=== PATIENT | female | born 1990 | race Caucasian/White ===

== ENCOUNTER 2022-10-16 10:15 | Outpatient (AMB) | payer OTHER, SELFPAY ==
--- NOTE | 2022-10-16 10:19 | A.OFFPC_ITS ---
Vital Signs 10/16/22 10:22 Height 5 ft 3 in Weight 215 lb BMI 38.1 BP 122/86 Blood Pressure Location Lt brachial Position Sitting Pulse 83 Pulse Source Pulse Oximeter Pulse Oximetry (%) 96 Oxygen Delivery Method Room Air Intake Visit Reasons: New Patient/ Fractured bone left foot Intake Note: Patient is here to establish care and to discuss fractured bone in left foot. Melt Superintendant Required: No Accompanied by: Self / Same As Patient Allergies ibuprofen [From Motrin] Allergy (Intermediate, Verified 08/07/23 16:20) HIVES hydrocodone Adverse Reaction (Intermediate, Verified 08/07/23 16:20) itching / rash From VICODIN Allergy (Unknown, Uncoded 08/07/23 16:20) ITCHING/RASH Medication List - Last Reconciled 10/16/22 by Lorenzo Aguiar MD No Known Home Meds Tobacco use date assessed: 10/16/22 HPI New Patient/ Fractured bone left foot HPI Details Patient comes in today to establish care (is a new patient to the practice) and also to discuss further her recent left foot symptoms States that she has been experiencing increased pain in her left foot for a couple of weeks now Is concerned that she may have hurt her foot recently States that she does a lot of walking and does not recall any particular injury or trauma to her foot except for when she planted her foot down harder than usual one time while going down some stairs a couple of weeks ago Recalls that she felt a sharp pain in her foot then and the pain has lingered since States that she is currently able to walk and move around with no significant difficulty States that she feels okay otherwise She denies any headaches or dizziness Denies any chest pains, no shortness of breath No nausea/vomiting, no abdominal pain No change in bowel habits noted [facility] Medical History (Updated 08/08/23 @ 05:47 by Lorenzo Aguiar MD) Obesity (BMI 30-39.9) Surgical History (Updated 08/07/23 @ 16:24 by Lorenzo Aguiar MD) No pertinent past surgical history Family History Other FH: mental illness Social History (Updated 08/07/23 @ 16:25 by Lorenzo Aguiar MD) Housing: House Patient Tobacco Use Status: Former Tobacco user Cigarette Packs Per Day: 0.5 Cigarettes Per Day: 10 Years Smoked: 8 e-Cigarette/Vaping Use: Currently Using Second Hand Smoke Exposure: No service: No Current occupational status: employed Current occupational exposures/hazards: No Cognitive needs: No Hearing needs: No Vision needs: No Questionnaire PHQ-9 Over the last 2 weeks, how often have you been bothered by any of the following problems? 1. Little interest or pleasure in doing things: more than half the days 2. Feeling down, depressed, or hopeless: more than half the days 3. Trouble falling or staying asleep, or sleeping too much: nearly every day 4. Feeling tired or having little energy: nearly every day 5. Poor appetite or overeating: nearly every day 6. Feeling bad about yourself - or that you are a failure or have let yourself or your family down: more than half the days 7. Trouble concentrating on things, such as reading the newspaper or watching television: nearly every day 8. Moving or speaking so slowly that other people could have noticed. Or the opposite - being so fidgety or restless that you have been moving around a lot more than usual: not at all 9. Thoughts that you would be better off or of hurting yourself in some way: not at all Total score: 18 Depression Screening Interpretation: Positive Depression Screening Follow-up: Existing condition and Community Mental Health Worker [place] [address] - PHQ-9 Billing: Yes Source: Developed by Drs. Madi Kenney, Hyacinth Hi, Frank Herrmann and colleagues, with an educational jayy from [employer]. Thrive Questionnaire Date Thrive assessed: 10/16/22 I am a: Patient What is your living situation today?: I have a steady place to live Within the past 12 months, did the food you bought not last and you didn't have the money to get more?: Never true Within the past 12 months, did you worry whether your food would run out before you got money to buy more?: Never true Do you have trouble paying for medicines?: No Do you have trouble getting transportation to medical appointments?: No Do you have trouble paying your heating and electricity bill?: No Do you have trouble taking care of your child, family member or friend?: No Do you have trouble with day-to-day activities such as bathing, preparing meals, shopping, managing finances, etc.?: No Are you currently unemployed and looking for a job?: No Are you interested in more education?: No Currently or been in a relationship where the following occur: no concerns reported AUDIT C Alcohol Use Questionnaire (AUDIT-C) 1. How often do you have a drink containing alcohol?: Never Total Score: 0 Score Reviewed/Action Taken: Yes CARLITO-7 AMB Questionnaire CARLITO-7 Date CARLITO - 7 assessed: 10/16/22 Feeling nervous, anxious, or on edge: 3 = Nearly every day Not being able to stop or control worryin = Nearly every day Worrying too much about different things: 3 = Nearly every day Trouble relaxin = Nearly every day Being so restless that it is hard to sit still: 3 = Nearly every day Becoming easily annoyed or irritable: 3 = Nearly every day Feeling afraid as if something awful might happen: 3 = Nearly every day Total CARLITO-7 score (0-4 normal; 5-9 mild; 10-14 moderate; 15-21 severe): 21 Source: Developed by Drs. Madi Kenney, Hyacinth Hi, Frank Herrmann and colleagues, with an educational jayy from [employer]. Review of Systems Const Denies chills, Denies fatigue, Denies fever(s) and Denies headache(s) ENT Denies dysphagia, Denies dizziness, Denies otalgia, Denies headache(s), Denies neck pain, Denies odynophagia and Denies sore throat Card Denies chest pain, Denies palpitations and Denies dyspnea Resp Denies cough and Denies dyspnea GI Denies abdominal pain, Denies constipation, Denies dysphagia, Denies heartburn, Denies diarrhea, Denies nausea, Denies odynophagia and Denies vomiting Denies difficulty voiding, Denies nocturia and Denies dysuria Musc Details: (+) left foot pain Denies neck pain Skin/Breast Denies rash Neuro Denies dizziness and Denies headache(s) Endo Denies fatigue and Denies palpitations Physical exam (Primary Care) Vital Signs: Last Vital Signs Pulse 83 10/16/22 10:22 BP 122/86 10/16/22 10:22 Pulse Ox 96 10/16/22 10:22 Oxygen Delivery Method Room Air 10/16/22 10:22 BMI result Body Mass Index 38.1 Tobacco/Smoking Status: Tobacco use Status Tobacco use date assessed 10/16/22 10/16/22 10:30 Patient Tobacco Use Status Current someday Tobacco 10/16/22 10:30 e-Cigarette/Vaping Use Never Used 10/16/22 10:30 PHQ-9: PHQ-9 Score PHQ-9: Total score 18 08/08/23 05:34 Depression Screening Interpretation: Positive Depression Screening Follow-up: Existing condition and Community Mental Health Worker F/U Thrive Assessment: Date of Thrive Assessment Date Thrive assessed 10/16/22 10/16/22 10:30 Currently or been in a relationship where the following occur: no concerns reported Const General: no acute distress and alert Neck Neck: Yes no lymphadenopathy and Yes supple Resp Auscultation: clear to auscultation bilaterally, no rales and no wheezes Cardio Rate: regular rate Rhythm: regular rhythm Heart sounds: no murmurs GI Other: Palpation (GI): Soft to palpation and nontender Auscultation: normal bowel sounds Extrem General: Yes no clubbing, cyanosis or edema Left lower extremity: foot Details: tenderness (mostly over the ball of her left foot near the base of the 3rd and 4th toes) Assessment and Plan Assessment & Plan (1) Left foot pain: Code(s): M79.672 - Pain in left foot Plan: Will send patient for some labs and for x-rays of the left foot for further evaluation and management (2) Obesity (BMI 30-39.9): Code(s): E66.9 - Obesity, unspecified Plan: Discussed diet/exercise as tolerated/ lose weight Plan To return in 3 months for an annual physical examination Orders: Orders Complete Blood Count Auto Diff 10/16/22 L08.9 - Local infection of the skin and subcutaneous tissue, unspecified Hemoglobin A1c 10/16/22 L08.9 - Local infection of the skin and subcutaneous tissue, unspecified, R73.9 - Hyperglycemia, unspecified C Reactive Protein 10/16/22 L08.9 - Local infection of the skin and subcutaneous tissue, unspecified TSH reflex Free T4 10/16/22 L08.9 - Local infection of the skin and subcutaneous tissue, unspecified, E66.9 - Obesity, unspecified Comprehensive Met. Panel 10/16/22 L08.9 - Local infection of the skin and subcutaneous tissue, unspecified Erythrocyte Sedimentation Rate 10/16/22 L08.9 - Local infection of the skin and subcutaneous tissue, unspecified Coding Level of Care Code New Pt Level 3 ([id number]) Diagnoses Left foot pain M79.672 Obesity (BMI 30-39.9) E66.9
[2022-10-16 10:22] VITALS: BP 122/86; PULSE 83; O2SAT 96; BMI 38.1
== END 2022-10-16 11:15 | disposition home or self-care (01) ==
LOC: HO.HMGH 10:15
PROVIDERS: PCP Internal Medicine; Visit Provider Internal Medicine
DX: M79.672 Pain in left foot (principal); E66.9 Obesity, unspecified
CPT/HCPCS: 99499

== ENCOUNTER 2022-10-16 11:29 | Outpatient (REF) | payer OTHER, SELFPAY ==
--- NOTE | ~2022-10-16 | XR_ITS ---
EXAMINATION: XR FOOT, LEFT CLINICAL INFORMATION: Pain lateral foot. COMPARISON: None available. TECHNIQUE: AP, lateral, and oblique views of the left foot. FINDINGS: There is a healing transverse fracture proximal fourth metatarsal. No visible acute fracture or dislocation or bony abnormality seen. The soft tissues are normal. There is mild hallux valgus deformity first MTP joint. T the ankle mortise and subtalar joints are normal. He soft tissues are normal. XR/XR foot LT min 3V IMPRESSION: 1. Healing transverse fracture proximal fourth metatarsal. No visible acute fracture or dislocation seen. 2. Mild hallux valgus deformity first MTP joint.
[2022-10-16 11:47] LABS: MANUAL DIFF FLAG NO
[2022-10-16 12:20] LABS: Basophils Absolute Auto 0.1 X10*3/uL (0.0-0.2); Basophils Percent Auto 0.9 % (0-2); Eosinophils Absolute Auto 0.2 X10*3/uL (0.0-0.4); Eosinophils Percent Auto 2.6 % (0-4); Hematocrit 39.9 % (37.0-47.0); Hemoglobin 13.4 g/dl (12.0-16.0); Imm Gran Abs Auto 0.03 X10*3/uL (0.00-0.03); Imm Gran Pct Auto 0.4 % (0.0-0.4); Lymphocytes Absolute Auto 2.6 X10*3/uL (1.2-4.9); Lymphocytes Percent Auto 33.2 % (20-40); Mean Corpuscular HGB Conc 33.6 g/dl (31.0-35.0); Mean Corpuscular Hemoglobin 29.8 pg (27.0-33.0); Mean Corpuscular Volume 88.7 fL (80.0-98.0); Mean Platelet Volume 11.2 fL (9.4-12.3); Monocytes Absolute Auto 0.7 X10*3/uL (0.1-1.2); Monocytes Percent Auto 8.4 % (2-11); Neutrophils Absolute Auto 4.3 x10*3/uL (2.0-8.3); Neutrophils Percent Auto 54.5 % (45-73); Platelet Count 256 X10*3/uL (160-400); Red Cell Distribution Width 13.6 % (11.0-16.0); White Blood Count 7.8 X10*3/uL (4.8-10.8)
[2022-10-16 12:22] LABS: Estimated Average Glucose 88 mg/dL; Hemoglobin A1c % 4.7 %
[2022-10-16 13:03] LABS: Alanine Aminotransferase 36 U/L (0-31); Albumin Level 4.4 g/dL (3.5-5.0); Alkaline Phosphatase 58 U/L (39-117); Anion Gap 12 (12-20); Aspartate Amino Transferase 25 U/L (5-31); Bilirubin Total 0.5 mg/dL (0.0-1.0); Blood Urea Nitrogen 6 mg/dL (9-16); C Reactive Protein 0.13 mg/dL (< or = 0.50); Calcium 9.6 mg/dL (8.4-10.2); Carbon Dioxide 25 mmol/L (22-29); Chloride 107 mmol/L (96-108); Estimated Glomerular Filt Rate > 60; Glucose Random 100 mg/dL (60-115); Potassium 4.4 mmol/L (3.3-5.1); Sodium 140 mmol/L (135-145)
[2022-10-16 13:13] LABS: TSH reflex Free T4 1.51 uIU/mL (0.32-4.0)
[2022-10-16 13:23] LABS: Erythrocyte Sedimentation Rate 6 MM/HR (0-20)
== END 2022-10-16 11:30 | disposition home or self-care (01) ==
LOC: HO.LAB 11:29
PROVIDERS: PCP Internal Medicine; Visit Provider Internal Medicine
DX: L08.9 Local infection of the skin and subcutaneous tissue, unspecified (principal); R73.9 Hyperglycemia, unspecified; E66.9 Obesity, unspecified
CPT/HCPCS: 36415; 73630; 80053; 83036; 84443; 85025; 85652; 86140

== ENCOUNTER 2023-08-07 15:38 | Outpatient (AMB) | payer OTHER, SELFPAY ==
[2023-08-07 15:43] VITALS: BP 120/76; PULSE 94; O2SAT 98; BMI 39.4
--- NOTE | 2023-08-07 15:43 | MHC.PC.OV ---
Vital Signs 08/07/23 15:43 Height 5 ft 3 in Weight 222 lb 6 oz BMI 39.4 BP 120/76 Blood Pressure Location Lt brachial Position Sitting Pulse 94 Pulse Source Pulse Oximeter Pulse Oximetry (%) 98 Oxygen Delivery Method Room Air Intake Visit Reasons: Annual appointment Hand Profiler Required: No Accompanied by: Self / Same As Patient Allergies ibuprofen [From Motrin] Allergy (Intermediate, Verified 08/07/23 16:20) HIVES hydrocodone Adverse Reaction (Intermediate, Verified 08/07/23 16:20) itching / rash From VICODIN Allergy (Unknown, Uncoded 08/07/23 16:20) ITCHING/RASH Medication List - Last Reconciled 08/07/23 by Lorenzo Aguiar MD No Known Home Meds Tobacco use date assessed: 08/07/23 Dental Screening Dental Screen Date: 08/07/23 Did you have a dental visit in the last 12 months?: Yes Did you have a dental problem in the last 6 months where you did not have access to dental care?: No Was dental information given to patient?: Patient has dentist HPI Annual appointment HPI Details Patient comes in today for her annual physical examination States that she feels okay She denies any headaches or dizziness Denies any chest pains, no shortness of breath No nausea/ vomiting, no abdominal pain No change in bowel habits noted Denies any acute urinary symptoms Adds that she still has on and off pain in her right foot but the pain has subsided a lot since last year and only bothers her now when she is on her feet for a long time Had x-rays done last year that did not show anything that needed any acute intervention [facility] Medical History (Updated 08/08/23 @ 05:26 by Lorenzo Aguiar MD) Obesity (BMI 30-39.9) Surgical History (Updated 08/07/23 @ 16:24 by Lorenoz Aguiar MD) No pertinent past surgical history Family History Other FH: mental illness Social History (Updated 08/07/23 @ 16:25 by Lorenzo Aguiar MD) Housing: House Patient Tobacco Use Status: Former Tobacco user Cigarette Packs Per Day: 0.5 Cigarettes Per Day: 10 Years Smoked: 8 e-Cigarette/Vaping Use: Currently Using Second Hand Smoke Exposure: No service: No Current occupational status: employed Current occupational exposures/hazards: No Cognitive needs: No Hearing needs: No Vision needs: No Questionnaire PHQ-9 Over the last 2 weeks, how often have you been bothered by any of the following problems? 1. Little interest or pleasure in doing things: more than half the days 2. Feeling down, depressed, or hopeless: more than half the days 3. Trouble falling or staying asleep, or sleeping too much: nearly every day 4. Feeling tired or having little energy: nearly every day 5. Poor appetite or overeating: nearly every day 6. Feeling bad about yourself - or that you are a failure or have let yourself or your family down: more than half the days 7. Trouble concentrating on things, such as reading the newspaper or watching television: nearly every day 8. Moving or speaking so slowly that other people could have noticed. Or the opposite - being so fidgety or restless that you have been moving around a lot more than usual: not at all 9. Thoughts that you would be better off or of hurting yourself in some way: not at all Total score: 18 Depression Screening Interpretation: Positive Depression Screening Follow-up: Existing condition and Community Mental Health Worker F/U Depression Screening Done: Yes 87228 - PHQ-9 Billing: Yes Source: Developed by Drs. Madi Kenney, Hyacinth Hi, Frank Herrmann and colleagues, with an educational jayy from [employer]. Thrive Questionnaire Date Thrive assessed: 08/07/23 I am a: Patient What is your living situation today?: I have a steady place to live Within the past 12 months, did the food you bought not last and you didn't have the money to get more?: Never true Within the past 12 months, did you worry whether your food would run out before you got money to buy more?: Never true Do you have trouble paying for medicines?: No Do you have trouble getting transportation to medical appointments?: No Do you have trouble paying your heating and electricity bill?: No Do you have trouble taking care of your child, family member or friend?: No Do you have trouble with day-to-day activities such as bathing, preparing meals, shopping, managing finances, etc.?: No Are you currently unemployed and looking for a job?: No Are you interested in more education?: No Please select the resources that you would like help with: None Currently or been in a relationship where the following occur: no concerns reported THRIVE Score: 0 AUDIT C Alcohol Use Questionnaire (AUDIT-C) 1. How often do you have a drink containing alcohol?: Never 3. How often do you have six or more drinks on one occasion?: Never Total Score: 0 Score Reviewed/Action Taken: Yes CARLITO-7 AMB Questionnaire CARLITO-7 Date CARLITO - 7 assessed: 08/07/23 Feeling nervous, anxious, or on edge: 3 = Nearly every day Not being able to stop or control worryin = Nearly every day Worrying too much about different things: 3 = Nearly every day Trouble relaxin = Nearly every day Being so restless that it is hard to sit still: 3 = Nearly every day Becoming easily annoyed or irritable: 3 = Nearly every day Feeling afraid as if something awful might happen: 3 = Nearly every day Total CARLITO-7 score (0-4 normal; 5-9 mild; 10-14 moderate; 15-21 severe): 21 Source: Developed by Drs. Madi Kenney, Hyacinth iH, Frank Herrmann and colleagues, with an educational jayy from [employer]. Review of Systems Const Denies chills, Denies fatigue, Denies fever(s), Denies headache(s) and Denies malaise Eyes Denies blurry vision, Denies change in vision, Denies irritation and Denies itchy eyes ENT Denies dysphagia, Denies dizziness, Denies otalgia, Denies headache(s), Denies nasal congestion, Denies neck pain, Denies odynophagia, Denies sinus pain and Denies sore throat Card Denies chest pain, Denies rapid heart rate, Denies irregular heart rhythm, Denies palpitations and Denies dyspnea Resp Denies chest congestion, Denies cough, Denies dyspnea and Denies wheezing GI Denies abdominal pain, Denies bloating, Denies constipation, Denies dysphagia, Denies heartburn, Denies diarrhea, Denies nausea, Denies odynophagia and Denies vomiting Denies hematuria, Denies urinary frequency, Denies dysuria, Denies urinary incontinence and Denies urinary urgency Musc Details: occasional pain in the right foot Denies back pain, Denies arthralgias, Denies joint swelling, Denies muscle weakness and Denies neck pain Skin/Breast Denies breast pain, Denies breast mass, Denies change in pigmentation, Denies lesions, Denies rash and Denies unusual bruising Neuro Denies dizziness, Denies headache(s) and Denies paresthesias Psych Denies anxiety and Denies depression Endo Denies fatigue and Denies palpitations Kristian/Lymph Denies easy bruising Aller/Immun Denies itchy eyes and Denies wheezing Physical exam (Primary Care) Vital Signs: Last Vital Signs Pulse 94 08/07/23 15:43 BP 120/76 08/07/23 15:43 Pulse Ox 98 08/07/23 15:43 Oxygen Delivery Method Room Air 08/07/23 15:43 BMI result Body Mass Index 39.4 Tobacco/Smoking Status: Tobacco use Status Tobacco use date assessed 08/07/23 08/07/23 15:46 Patient Tobacco Use Status Former Tobacco user 08/07/23 16:25 e-Cigarette/Vaping Use Currently Using 08/07/23 16:25 PHQ-9: PHQ-9 Score PHQ-9: Total score 18 08/07/23 16:26 Depression Screening Interpretation: Positive Depression Screening Follow-up: Existing condition and Community Mental Health Worker F/U Thrive Assessment: Date of Thrive Assessment Date Thrive assessed 08/07/23 08/07/23 15:46 Currently or been in a relationship where the following occur: no concerns reported Const General: no acute distress, alert and awake Orientation/consciousness: patient oriented x3 HENMT Head: Yes normocephalic and Yes atraumatic Ears: external ears normal, TM's normal bilaterally and EAC's normal General nose exam: No nasal discharge present Face and sinus: Yes normal facial exam and Yes sinuses nontender Teeth and gingiva: dentition normal Throat: Yes posterior oropharynx normal and Yes tonsils normal (no TP congestion) Eyes Eyelids: Yes eyelids normal Conjunctivae: conjunctivae normal Pupils: Equal, round and reactive pupils present EOM: EOMs intact bilaterally Neck Neck: Yes no lymphadenopathy and Yes supple Thyroid: Thyroid normal Resp Auscultation: clear to auscultation bilaterally, no rales and no wheezes Cardio Rate: regular rate Rhythm: regular rhythm Heart sounds: no murmurs GI Palpation (GI): Soft to palpation, nontender and No hepatosplenomegaly present Auscultation: normal bowel sounds General: Yes no CVA tenderness Back/Spine/Pelvis Back: no CVA tenderness Thoracic/Lumbar Spine: thoracic and lumbar spine normal to inspection Skin Lesions: no lesions Rashes: no rashes Neuro General: patient oriented x3, moves all extremities, no focal motor deficits and CN's II-XI intact bilaterally Cranial nerves: Yes Equal, round and reactive pupils present Cognition (Neuro): normal cognition Gait exam (Neuro): Normal gait present Extrem General: Yes no clubbing, cyanosis or edema Assessment and Plan Assessment & Plan (1) Annual physical exam: Code(s): Z00.00 - Encounter for general adult medical examination without abnormal findings Plan: Check labs She has not had her annual gynecology exam and pap smear in a few years now and is requesting for a referral to gynecology here at [facility] [place] - used to see gynecology in [place] (2) Right foot pain: Code(s): M79.671 - Pain in right foot Plan: X-rays of the right foot done back in September 2022 revealed (+) healing transverse fracture proximal fourth metatarsal, with no visible acute fracture or dislocation seen. There is also a mild hallux valgus deformity over the first MTP joint Patient states that her foot symptoms have subsided significantly and only bother her occasionally nowadays Discussed that if her foot pain recurs or progress, can consider referring her to Podiatry for further evaluation and management (3) Obesity (BMI 30-39.9): Code(s): E66.9 - Obesity, unspecified Plan: Reinforced diet/exercise as tolerated/ lose weight (4) Cervical cancer screening: Code(s): Z12.4 - Encounter for screening for malignant neoplasm of cervix Plan: Will refer her to Gynecology for her annual Pap smear and gynecology exam Plan To return in 1 year for her next annual physical examination Orders: Orders Complete Blood Count Auto Diff 08/07/23 D64.9 - Anemia, unspecified, Z00.00 - Encounter for general adult medical examination without abnormal findings Lipid Panel 08/07/23 E78.00 - Pure hypercholesterolemia, unspecified, Z00.00 - Encounter for general adult medical examination without abnormal findings TSH reflex Free T4 08/07/23 E78.00 - Pure hypercholesterolemia, unspecified, Z00.00 - Encounter for general adult medical examination without abnormal findings Vitamin D 25-OH Total 08/07/23 E55.9 - Vitamin D deficiency, unspecified, Z00.00 - Encounter for general adult medical examination without abnormal findings Comprehensive [place]. 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
== END 2023-08-07 16:35 | disposition home or self-care (01) ==
PROVIDERS: PCP Internal Medicine; Visit Provider Internal Medicine
DX: Z00.00 Encounter for general adult medical examination without abnormal findings (principal); M79.672 Pain in left foot; E66.9 Obesity, unspecified; Z68.39 Body mass index [BMI] 39.0-39.9, adult
CPT/HCPCS: 99395

== ENCOUNTER 2024-12-18 09:15 | Outpatient (AMB) | payer OTHER, SELFPAY ==
[2024-12-18 09:24] VITALS: BP 110/68; PULSE 85; O2SAT 98; BMI 39.0
--- NOTE | 2024-12-18 09:24 | A.OFFPC_ITS ---
Vital Signs 12/18/24 09:24 Height 5 ft 3 in Weight 220 lb 2 oz BMI 39.0 BP 110/68 Blood Pressure Location Lt brachial Position Sitting Pulse 85 Pulse Source Pulse Oximeter Pulse Oximetry (%) 98 Oxygen Delivery Method Room Air Intake Visit Reasons: referral psychiatry/ surgery? 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 Accompanied by: Self / Same As Patient Allergies ibuprofen (From Motrin) Allergy (Intermediate, Verified 12/18/24 09:41) HIVES hydrocodone Adverse Reaction (Intermediate, Verified 12/18/24 09:41) itching / rash From VICODIN Allergy (Unknown, Uncoded 12/18/24 09:41) ITCHING/RASH Medication List - Last Reconciled 12/18/24 by Lorenzo Aguiar MD No Known Home Meds Tobacco use date assessed: 12/18/24 Dental Screening Dental Screen Date: 12/18/24 Did you have a dental visit in the last 12 months?: Yes Did you have a dental problem in the last 6 months where you did not have access to dental care?: No Was dental information given to patient?: Patient has dentist HPI referral psychiatry/ surgery? HPI Details Patient comes in today complaining of recurrent right foot pain lately, especially over toe areas She feels that her toes are curving in and downwards more than they normally should Relates (+) Hx of foot fracture a few years ago but that was mostly on the lateral aspect of the foot States that she is on her feet at work all day long, and also does a lot of walking, which do not help with her foot symptoms She denies any recent injury or trauma to her foot Adds that she is presently still smoking 1 pack / day - has been smoking off and on for about 7 years but now wants some help to quit smoking States that she has tried cold turkey unsuccessfully; has also tried patches in the past but admits that she was inconsistent with its use She denies any headaches or dizziness Denies any chest pains, no increased SOB No nausea/vomiting, no abdominal pain No change in bowel habits noted PFSH Medical History Smoker Obesity (BMI 30-39.9) Surgical History No pertinent past surgical history Family History (Reviewed 12/18/24 @ 09: by FERNANDO Soler) Other FH: mental illness Social History (Reviewed 12/18/24 @ 09: by FERNANDO Soler) Housing: House Patient Tobacco Use Status: Former Tobacco user Cigarette Packs Per Day: 0.5 Cigarettes Per Day: 10 Years Smoked: 8 e-Cigarette/Vaping Use: Currently Using Second Hand Smoke Exposure: No service: No Current occupational status: employed Current occupational exposures/hazards: No Cognitive needs: No Hearing needs: No Vision needs: No Questionnaire PHQ-9 Over the last 2 weeks, how often have you been bothered by any of the following problems? 1. Little interest or pleasure in doing things: more than half the days 2. Feeling down, depressed, or hopeless: several days 3. Trouble falling or staying asleep, or sleeping too much: several days 4. Feeling tired or having little energy: several days 5. Poor appetite or overeating: several days 6. Feeling bad about yourself - or that you are a failure or have let yourself or your family down: several days 7. Trouble concentrating on things, such as reading the newspaper or watching television: several days 8. Moving or speaking so slowly that other people could have noticed. Or the opposite - being so fidgety or restless that you have been moving around a lot more than usual: nearly every day 9. Thoughts that you would be better off or of hurting yourself in some way: not at all Total score: 11 Depression Screening Interpretation: Positive Depression Screening Follow-up: Existing condition and Community Mental Health Worker F/U Depression Screening Done: Yes 15364 - PHQ-9 Billing: Yes Source: Developed by Drs. Madi Kenney, Hyacinth Hi, Frank Herrmann and colleagues, with an educational jayy from [employer]. Thrive Questionnaire Date Thrive assessed: 12/18/24 I am a: Patient What is your living situation today?: I have a steady place to live Within the past 12 months, did the food you bought not last and you didn't have the money to get more?: Sometimes True Within the past 12 months, did you worry whether your food would run out before you got money to buy more?: Sometimes True Do you have trouble paying for medicines?: No Do you have trouble getting transportation to medical appointments?: No Do you have trouble paying your heating and electricity bill?: Yes Do you have trouble taking care of your child, family member or friend?: No Do you have trouble with day-to-day activities such as bathing, preparing meals, shopping, managing finances, etc.?: No Are you currently unemployed and looking for a job?: No Are you interested in more education?: No Please select the resources that you would like help with: None Currently or been in a relationship where the following occur: No concerns reported THRIVE Score: 3 AUDIT C Alcohol Use Questionnaire (AUDIT-C) 1. How often do you have a drink containing alcohol?: Never 3. How often do you have six or more drinks on one occasion?: Never Total Score: 0 Score Reviewed/Action Taken: Yes CARLITO-7 AMB Questionnaire CARLITO-7 Date CARLITO - 7 assessed: 12/18/24 Feeling nervous, anxious, or on edge: 3 = Nearly every day Not being able to stop or control worryin = Nearly every day Worrying too much about different things: 3 = Nearly every day Trouble relaxin = Nearly every day Being so restless that it is hard to sit still: 3 = Nearly every day Becoming easily annoyed or irritable: 3 = Nearly every day Feeling afraid as if something awful might happen: 3 = Nearly every day Total CARLITO-7 score (0-4 normal; 5-9 mild; 10-14 moderate; 15-21 severe): 21 Source: Developed by Drs. Madi Kenney, Hyacinth Hi, Frank Herrmann and colleagues, with an educational jayy from [employer]. Review of Systems Const Denies fatigue, Denies fever(s) and Denies headache(s) ENT Denies dysphagia, Denies dizziness, Denies otalgia, Denies headache(s), Denies neck pain, Denies odynophagia and Denies sore throat Card Denies chest pain, Denies rapid heart rate, Denies irregular heart rhythm, Denies palpitations and Denies dyspnea Resp Denies chest congestion, Denies cough and Denies dyspnea GI Denies abdominal pain, Denies constipation, Denies dysphagia, Denies heartburn, Denies diarrhea, Denies nausea, Denies odynophagia and Denies vomiting Denies urinary frequency, Denies dysuria and Denies urinary urgency Musc Details: (+) on and off pain over the toes of the right foot Denies back pain, Denies arthralgias and Denies neck pain Skin/Breast Denies rash Neuro Denies dizziness and Denies headache(s) Psych Denies anxiety and Denies depression Endo Denies fatigue and Denies palpitations Kristian/Lymph Denies easy bruising Physical exam (Primary Care) Vital Signs: Last Vital Signs Pulse 85 12/18/24 09:24 BP 110/68 12/18/24 09:24 Pulse Ox 98 12/18/24 09:24 Oxygen Delivery Method Room Air 12/18/24 09:24 BMI result Body Mass Index 39.0 Tobacco/Smoking Status: Tobacco use Status Tobacco use date assessed 12/18/24 12/18/24 09:30 Patient Tobacco Use Status Former Tobacco user 12/18/24 09:30 e-Cigarette/Vaping Use Currently Using 12/18/24 09:30 PHQ-9: PHQ-9 Score PHQ-9: Total score 11 12/18/24 09:30 Depression Screening Interpretation: Positive Depression Screening Follow-up: Existing condition and Community Mental Health Worker F/U Thrive Assessment: Date of Thrive Assessment Date Thrive assessed 12/18/24 12/18/24 09:30 Currently or been in a relationship where the following occur: No concerns reported Const General: no acute distress and alert HENMT Throat: Yes posterior oropharynx normal and Yes tonsils normal (no TP congestion) Neck Neck: Yes supple and No lymphadenopathy Thyroid: Thyroid normal Resp Auscultation: clear to auscultation bilaterally, no rales and no wheezes Cardio Rate: regular rate Rhythm: regular rhythm Heart sounds: no murmurs GI Palpation (GI): Soft to palpation and nontender Auscultation: normal bowel sounds General: Yes no CVA tenderness Back/Spine/Pelvis Back: no CVA tenderness Thoracic/Lumbar Spine: No lumbar spinal tenderness Skin Rashes: no rashes Extrem General: Yes no clubbing, cyanosis or edema Right lower extremity: foot ((+) tenderness over the toes and the ball area of the foot - see HPI) Coding Level of Care Code Est Pt Level 4 (04189) Diagnoses Right foot pain M79.671 Smoker F17.200 Obesity (BMI 30-39.9) E66.9 Cervical cancer screening Z12.4 Additional Codes PHQ-9 - 61495 - PHQ-9 Billing: Yes ([id number]) Assessment & Plan Assessment & Plan (1) Right foot pain: Code(s): M79.671 - Pain in right foot Category: Medical Plan: (+) Hx of fracture over the lateral aspect of the right foot although her current complaints are more over the toes and the ball of the foot Will send patient for x-rays of the right foot for further evaluation Will also refer her to podiatry for further evaluation and management of her right foot issues (2) Smoker: Code(s): F17.200 - Nicotine dependence, unspecified, uncomplicated Category: Social Hx Plan: Patient is counseled again on complete smoking cessation Will start her on Nicotine patches - to start on step 1 and work her way down as instructed to the maintenance dose (step 3) of 7 mg/day (3) Obesity (BMI 30-39.9): Code(s): E66.9 - Obesity, unspecified Category: Medical Plan: Reinforced diet/exercise as tolerated/lose weight (4) Cervical cancer screening: Code(s): Z12.4 - Encounter for screening for malignant neoplasm of cervix Category: Medical Plan: Will again refer her to the [facility] for her yearly gynecology exam and pap smear She was referred last year but states that she was never able to schedule an appointment with them Plan To return in 3 to 4 months for her annual physical examination Orders: Orders XR foot RT min 3V Today M79.671 - Pain in right foot Referrals [employer] Referral Z12.4 - Encounter for screening for malignant neoplasm of cervix Podiatry Referral M79.671 - Pain in right foot Medications: New nicotine 1 patch transdermal DAILY 7 ea 0RF 7 days F17.200 - Nicotine dependence, unspecified, uncomplicated nicotine 1 patch transdermal DAILY 7 ea 0RF 7 days F17.200 - Nicotine dependence, unspecified, uncomplicated nicotine 1 patch transdermal Q24H 28 ea 5RF 28 days F17.200 - Nicotine dependence, unspecified, uncomplicated
== END 2024-12-18 10:00 | disposition home or self-care (01) ==
LOC: HO.HMCH 09:16
PROVIDERS: PCP Internal Medicine; Visit Provider Internal Medicine
DX: M79.671 Pain in right foot (principal); F17.200 Nicotine dependence, unspecified, uncomplicated; E66.9 Obesity, unspecified; Z68.39 Body mass index [BMI] 39.0-39.9, adult

== ENCOUNTER 2024-12-18 09:15 | Outpatient (REF) | payer OTHER, SELFPAY ==
--- NOTE | ~2024-12-18 | XR_ITS ---
EXAMINATION: XR FOOT, RIGHT CLINICAL INFORMATION: M79.671 - Pain in right foot COMPARISON: None available. TECHNIQUE: AP, lateral, and oblique views of the right foot. FINDINGS: There is hallux valgus deformity. There is associated lateral subluxation of the sesamoids of the first metatarsal head. Other abnormality is apparent. XR/XR foot RT min 3V IMPRESSION: Hallux valgus deformity with moderate lateral subluxation of the sesamoids. Electronically signed by: Byron Kraus MD 12/18/2024 10:34 AM EDT
== END 2024-12-18 09:16 | disposition home or self-care (01) ==
LOC: HO.XRAY 09:15
PROVIDERS: PCP Internal Medicine; Visit Provider Internal Medicine
DX: M79.671 Pain in right foot (principal); E66.9 Obesity, unspecified; Z68.39 Body mass index [BMI] 39.0-39.9, adult; F17.200 Nicotine dependence, unspecified, uncomplicated; Z13.31 Encounter for screening for depression; Z13.39 Encounter for screening examination for other mental health and behavioral disorders
CPT/HCPCS: 73630; 96127; 99212

== ENCOUNTER → 2024-12-18 10:15 | Outpatient (BNV) | payer OTHER, SELFPAY | PROVIDERS: PCP Internal Medicine; Visit Provider Radiology Diagnostic Radiology | DX: M79.671 Pain in right foot (principal) | CPT/HCPCS: 73630 ==

== ENCOUNTER 2025-03-16 14:37 | Outpatient (REF) | payer OTHER, SELFPAY ==
--- NOTE | ~2025-03-16 | XR_ITS ---
EXAMINATION: XR FOOT 3 OR MORE VIEWS LEFT HISTORY: M79.672 - Pain in left foot COMPARISON: Comparison is made with the prior examination dated 10/16/2022. FINDINGS: Three views of the left foot are submitted. Osseous mineralization is normal. The previously seen fracture of the base of the 4th metatarsal has healed. No acute fracture or dislocation is seen. There is mild hallux valgus deformity of the great toe. An erosion is again seen in the metatarsal head. The soft tissues are unremarkable. XR/XR foot LT min 3V IMPRESSION: Mild hallux valgus deformity of the great toe. Healed fracture of the base of the 4th metatarsal. Electronically signed by: Madi Vincent MD 03/16/2025 03:36 PM EDT
== END 2025-03-16 14:38 | disposition home or self-care (01) ==
LOC: HO.HMGCX 14:37
PROVIDERS: PCP Internal Medicine; Visit Provider Family Medicine
DX: M84.375A Stress fracture, left foot, initial encounter for fracture (principal)
CPT/HCPCS: 73630

== ENCOUNTER 2025-03-16 14:37 | Outpatient (AMB) | payer OTHER, SELFPAY ==
--- OUTSIDE RECORDS SUMMARY | 2025-03-13 20:59 | XMS_ITS | Encounter Summary ---
Author Organization [facility] Address [address] [place] [address] Care Team Providers Care Chimney Mechanic Name Role Phone Lorenzo Aguiar MD Primary Care Provider + [phone] Reason for Referral * Consultation (Routine) - Pending Review Specialty Diagnoses / Procedures Referred By Brianna feldman Referred To Contact Podiatry Diagnoses Left foot pain Peña Colin PA [address] [place] [address] Phone: tel: fax: Referral ID Status Reason Start Date Expiration Date Visits Requested Visits Authorized [id number] Pending Review Specialty Services Required 03/13/2026 1 1 Reason for Visit * Reason Comments Lower Extremity Issue Left foot pain x 1 week- no trauma/injury Encounter Details Date Type Department Care Team (Late st Contact Info) Description 03/13/2025 8:59 PM EDT - 03/13/2025 9:06 PM EDT Emergency [facility] Emergency [address] [place] [address] Left foot pain (Primary Dx) Discharge Disposition: Home or Self Care Social History Tobacco Use Types Packs/Day Years Used Date Smoking Tobacco: Never Assessed Comments No Sex and Gender Information Value Date Recorded Sex Assigned at Not on file Legal Sex Female 4:19 AM EST Gender Identity Not on file Sexual Orientation Not on file documented as of this encounter Last Filed Vital Signs Vital Sign Reading Time Taken Comments Blood Pressure 145/85 03/13/2025 8:47 PM EDT Pulse 85 03/13/2025 8:47 PM EDT Temperature 37 C (98.6 F) 03/13/2025 8:47 PM EDT Respiratory Rate 19 03/13/2025 8:47 PM EDT Oxygen Saturation 99% 03/13/2025 8:47 PM EDT Inhaled Oxygen Concentration - - Weight 96.2 kg (212 lb) 03/13/2025 8:47 PM EDT Height 160 cm (5' 3 ) 03/13/2025 8:47 PM EDT Body Mass Index 37.55 03/13/2025 8:47 PM EDT documented in this encounter Functional Status * Calculated C-SSRS Risk Score (Lifetime/Recent) Answer Date of Assessment Author No Risk Indicated 03/13/2025 8:47 PM EDT Ana Rosa Elkins i, RN * [place] Suicide Severity Rating Scale (Screener/Recent Self-Report) Question Answer Date of Assessment Author 1. Wish to be (Past 1 Month) No 03/13/2025 8:47 PM EDT Shelbie Duran ra, NEDA 2. Non-Specific Active Suicidal Thoughts (Past 1 Month) No 03/13/2025 8:47 PM EDT Shelbie Duran ra, RN 6. Suicidal Behavior (Lifetime) No 03/13/2025 8:47 PM EDT Shelbie Duran ra, NEDA documented as of this encounter Discharge Instructions * Discharge Instructions* CHRISTINA Anne - 03/13/2025 9:00 PM EDT Wear postoperative shoe for the next several days to 2 weeks Ice therapy twice a time Tylenol/ibuprofen for pain as needed directed Please follow-up with professional housing consultant if pain persist greater than 2 weeks for reevaluation further workup * Attachments The following attachments cannot be sent through Care Everywhere. * Foot Pain (Sol[place] Islander) documented in this encounter Discharge Disposition Disposition Code Departure Means Destination Comment s Home or Self Care documented in this encounter Progress Notes * Ana Rosa Duran RN - 03/13/2025 8:43 PM EDT Left foot pain starting at the top and now wrapping around the base and traveling up her ankle. Says that a few hours prior to arrival experienced numbness on the outside of her ankle. Has positive palpable pulses both dorsalis and post tib. And cap refill <3 sec. No noted discoloration. Denies injury. Able to move all toes. Had Xrays done at urgent care which showed nothing. * CHRISTINA Anne - 03/13/2025 8:37 PM EDT HPI Chief Complaint Patient presents with Lower Extremity Issue Left foot pain x 1 week- no trauma/injury HPI left foot pain for the past week. Seen in urgent care with negative x-rays. Denies any trauma injury but states that she does wear different shoes from time to time. Pain primarily at the base ofthe 2nd and 3rd toes worse when walking on it and absent when resting. No history of gout or blood clots. Denies any swelling bruising bleeding numbness tingling weakness. No data recorded Patient History Medical History[1] Surgical History[2] Family History[3] Social History Tobacco Use Smoking status: Not on file Smokeless tobacco: Not on file Substance Use Topics Alcohol use: Not on file Drug use: Not on file Review of Systems Review of Systems Physical Exam ED Triage Vitals [03/13/252046] Temp Heart Rate Resp BP 37 ??C (98.6 ??F) 85 19 (!) 145/85 SpO2 Temp Source Heart Rate Source Patient Position 99 % Oral Radial Sitting BP Location FiO2 (%) Right arm -- Physical Exam GENERAL: Well developed, no acute distress HEENT: Normocephalic and atraumatic, EOMI NECK: Supple, trachea is midline RESP: No respiratory distress CARDIOVASCULAR: Regular rate GASTROINTESTINAL: Abdomen is soft, non distended MUSCULOSKELETAL: ROM normal, no obvious acute deformities, no bony tenderness or deformity, pain with dorsiflexion of the toes against resistance, distal CMS intact, walking steady gait SKIN: Warm and dry NEUROLOGIC: At baseline, no acute focal deficits PSYCHIATRIC: Calm and cooperative ED Course & MDM Clinical Impressions as of 03/14/25 0336 Left foot pain Medical Decision Making Exam history most consistent with tendon/ligament strain of the 2nd and 3rd toes, given negative x-rays outpatient no suspicion for fracture dislocation Lisfranc injury Vital signs reviewed Pulse oximetry reviewed and found to be > 94% on room air Physical exam as above Nursing notes reviewed X-rays declined Social determinants of health considered including housing follow-up social and financial support Patient deemed appropriate for discharge with symptomatic treatment, recommendations to follow-up with primary care doctor / specialist with return precautions provided Procedures Procedure: Splint Application Distal CMS intact prior to splint Prefabricated postoperative shoe applied and fitted appropriately by myself or under my supervisionfrom another staff member of the ED Distal CMS intact after splint CHRISTINA Anne 03/14/25 0357 [1] No past medical history on file. [2] No past surgical history on file. [3] No family history on file. CHRISTINA Anne 03/14/25 0432 Cosigned by Flavia Mueller MD at 03/14/2025 9:22 AM EDT Associated attestation - Flavia Mueller MD - 03/14/2025 9:22 AM EDT I was available for consult in real time on shift and if asked my input in care is as outlined by the documentation below by me. If not documented, then I did not participate in the care of this patient and have reviewed the chart as written. Flavia Mueller MD documented in this encounter Plan of Treatment Upcoming Encounters Date Type Department Care Team (Late st Contact Info) Description 03/24/2025 2:15 PM EDT Office Visit Orthopedic Surgery - [place] [address] [address] Adiel Cosby, DPSparkle [address] [address] Scheduled Referrals Name Type Priority Associated Diagnoses Order Schedule Ambulatory referral to Podiatry Outpatient Referral Routine 1 Occurrence s starting 03/13/2025 until 03/13/2026 documented as of this encounter Visit Diagnoses Diagnosis Left foot pain- Primary Pain in soft tissues of limb documented in this encounter Orders General Supply Count Last Ordered Date First Or dered Date GENERAL SUPPLY 1 03/13/2025 documented in this encounter Care Teams Chimney Mechanic Relationship Specialty Start Date End Date Lorenzo Aguiar MD [address] [place] [address] [address] [place], [place] PCP - General Internal Medicine 12/21/24 documented as of this encounter
[2025-03-16 14:40] VITALS: BP 128/82; PULSE 84; TEMP 36.9; O2SAT 99; BMI 39.0
--- NOTE | 2025-03-16 14:40 | AM.OFFWIN_ITS ---
Intake Vital Signs 03/16/25 14:40 Height 5 ft 3 in Weight 220 lb BMI 39.0 BP 128/82 Blood Pressure Location Lt brachial Position Sitting Pulse 84 Pulse Source Pulse Oximeter Temp 98.5 F Temp Source Oral Pulse Oximetry (%) 99 Oxygen Delivery Method Room Air Intake Visit Reasons: EP-lt foot pain & swollen Intake Note: Patient presents with c/o swelling & stinging/throbbing pain in left foot x2 weeks Patient Tobacco Use Status: Former Tobacco user Allergies ibuprofen (From Motrin) Allergy (Intermediate, Verified 03/16/25 14:44) HIVES acetaminophen (From Vicodin) Allergy (Verified 03/16/25 14:44) Itching hydrocodone Adverse Reaction (Intermediate, Verified 03/16/25 14:44) itching / rash Medication List - Last Reconciled 03/16/25 by Jacqui Beltran MD No Known Home Meds Do you need a note to return to daycare/school/sports/work: Yes HPI HPI Comments History of Present Illness Details The patient is a 34-year-old female presenting with foot pain and swelling. Left foot pain: - The patient reports experiencing persi stent left foot pain for the past two weeks. - Pain onset was sudden and without any noted injury or trauma. - Pain has progressively intensified and currently radiating up the foot. - The patient does not recall any specif ic events, such as prolonged walking or physical strain, that may have triggered the pain. - The patient works on her feet for appr oximately 10 hours daily, which is her usual activity level. - She ambulates using the heel despite t he pain. Review of Systems Constitutional: Negative for fevers, chills Musculoskeletal: Positive for arthralgias, lower extremity swelling, trouble ambulating Skin: Negative for rash or wounds Neurological: Negative for numbness Physical Exam General Appearance: Normal appearance, well developed. No acute distress Head: Normocephalic, atraumatic Pulmonary: No respiratory distress. Speaking in full sentences Musculoskeletal: Moving all extremities spontaneously and against gravity. Swelling observed on the dorsum of the left foot. Tenderness to palpation overlying the distal left 2nd, 3rd, and 4th metatarsals. Sensation intact distally. +2 dorsalis pedis pulses. Cap refill less than 2 seconds. Normal range of motion of the toes. Mental Status: Alert and Oriented x 3 Psychiatric: Normal mood. Normal affect. [facility] Medical History Smoker Obesity (BMI 30-39.9) Surgical History No pertinent past surgical history Family History Other FH: mental illness Social History Housing: House Patient Tobacco Use Status: Former Tobacco user Cigarette Packs Per Day: 0.5 Cigarettes Per Day: 10 Years Smoked: 8 e-Cigarette/Vaping Use: Currently Using Second Hand Smoke Exposure: No service: No Current occupational status: employed Current occupational exposures/hazards: No Cognitive needs: No Hearing needs: No Vision needs: No Physical Exam Vital Signs: Last Vital Signs Temp 98.5 F 03/16/25 14:40 Pulse 84 03/16/25 14:40 BP 128/82 03/16/25 14:40 Pulse Ox 99 03/16/25 14:40 Oxygen Delivery Method Room Air 03/16/25 14:40 BMI result Body Mass Index 39.0 Assessment & Plan Assessment & Plan (1) Stress fracture of metatarsal bone of left foot: Code(s): M84.375A - Stress fracture, left foot, initial encounter for fracture Qualifiers: Encounter type: initial encounter Qualified Code(s): M84.375A - Stress fracture, left foot, initial encounter for fracture Plan - After personally reviewing left foot x-rays; irregularity noted along the left distal 3rd metatarsal. Spoke with radiologist who reported findings may be consistent with a vascular groove vs stress response and to correlate clinically. Due to patient's symptoms, physical exam, and worsening pain without known trauma, concern for potential stress fracture of the distal 3rd metatarsal. Patient was placed in a Cam boot and referral to Podiatry placed. Discussed rest, ice, and elevation. OTC pain medication as needed. Orders: Orders XR foot LT min 3V Today M79.672 - Pain in left foot Referrals Podiatry Referral M84.376A - Stress fracture, unspecified foot, initial encounter for fracture Coding Level of Care Code Est Pt Level 3 (42307) Diagnoses Stress fracture of metatarsal bone of left foot, initial encounter M84.375A Encounter type: initial encounter
--- OUTSIDE RECORDS SUMMARY | 2025-03-16 19:42 | XMS_ITS ---
Author Name [facility] Organization Unknown History of Medication Use Medication Directions Dispensed Refills Start Date End Date Stat us active Encounters Encounter Type Encounter Reason Primary Diagnosis Location Date Ambulatory TBE Pain in right knee [facility]) 03/08/2025 Care Team Organization Name Specialty Phone Email Start Date End [facility] 03/11/2025 [facility] 03/08/2025
--- OUTSIDE RECORDS SUMMARY | 2025-03-16 19:42 | XMS_ITS | Clinical Summary ---
Author Organization [facility] Address [address] [place] [address] Phone Care Team Providers Care Usability Strategist Name Role Phone Lorenzo Aguiar MD Primary Care Provider [phone] Allergies No known active allergies Encounters Date Type Department Care Team Description 03/13/2025 8:59 PM EDT - 03/13/2025 9:06 PM EDT Emergency [facility] [address] [place] [address] Left foot pain (Primary Dx) Discharge Disposition: Home or Self Care from Last 3 Months Social History Tobacco Use Types Packs/Day Years Used Date Smoking Tobacco: Never Assessed Comments No Sex and Gender Information Value Date Recorded Sex Assigned at Not on file Legal Sex Female 4:19 AM EST Gender Identity Not on file Sexual Orientation Not on file Obstetrics History Last Filed Vital Signs Vital Sign Reading [...] Mass Index 37.55 03/13/2025 8:47 PM EDT Plan of Treatment Upcoming Encounters Date Type Department Care Team (Late st Contact Info) Description 03/24/2025 2:15 PM EDT Office Visit Orthopedic Surgery - [place] [address] [facility] [address] [place] [address] [place] [id number] Adiel Cosby, DPM [address] [phone] Health Maintenance Due Date Last Done Comments Cervical Cancer Screening: Pap Smear 2013 DTaP,Tdap,and Td Vaccines (7 - Td or Tdap) 04/28/2017 04/28/2007, 08/05/1997, 01/01/1994, Additional history exists Depression Screening 05/27/2024 COVID-19 Vaccine (2024- season) 2025 07/23/2022, 05/04/2022 Influenza Vaccine (#1) 2025 9, 04/19/2008, 04/28/2007 HIV Screening 03/13/2025 Hepatitis C Screening 03/13/2025 Social Influencers of Health Screening 03/13/2025 RSV Immunization Adult Patients (1 - 1-dose 75+ series) 07/26/2067 Hepatitis B Vaccines Completed 04/02/1994, 03/01/1993, 1992 IPV Vaccines Completed 08/05/1997, 12/1993, 1992, Additional history exists MMR Vaccines Completed 08/05/1997, 01/01/1994 Meningococcal ACWY Vaccine Aged Out 04/19/2008 N o longer eligible based on patient's age to complete this topic HPV Vaccines Completed 06/28/2008, 03/28, 04/28/2007 HIB Vaccines Aged Out No longer eligi ble based on patient's age to complete this topic Hepatitis A Vaccines Aged Out No long er eligible based on patient's age to complete this topic Meningococcal B Vaccine Aged Out No l onger eligible based on patient's age to complete this topic Pneumococcal Vaccine: Pediatrics (0 to 5 Years) and At-Risk Patients (6 to 49 Years) Aged Out No longer eligible based on patient's age to complete this topic RSV Immunization Patients Under 20 months Aged Out No longer eligible based on patient's age to complete this topic Varicella Vaccines Aged Out No longer eligible based on patient's age to complete this topic Insurance [place] [address] [place] [address] Care Teams Usability Strategist Relationship Specialty Start Date End Date Lorenzo Aguiar MD [address] [place] [address] [place] [address] PCP - General Internal Medicine 12/21/24
== END 2025-03-16 16:26 | disposition home or self-care (01) ==
PROVIDERS: PCP Internal Medicine; Visit Provider Family Medicine
DX: M84.375A Stress fracture, left foot, initial encounter for fracture (principal)

== ENCOUNTER → 2025-03-16 15:18 | Outpatient (BNV) | payer OTHER, SELFPAY | PROVIDERS: PCP Internal Medicine; Visit Provider Radiology Diagnostic Radiology | DX: M20.12 Hallux valgus (acquired), left foot (principal) | CPT/HCPCS: 73630 ==

== ENCOUNTER 2025-03-26 08:19 | Outpatient (AMB) | payer OTHER, SELFPAY ==
--- NOTE | 2025-03-26 08:23 | A.OFFPC_ITS ---
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: No Accompanied by: Self / Same As Patient Allergies ibuprofen (From Motrin) Allergy (Intermediate, Verified 03/26/25 08:36) HIVES acetaminophen (From Vicodin) Allergy (Verified 03/26/25 08:36) Itching hydrocodone Adverse Reaction (Intermediate, Verified 03/26/25 08:36) itching / rash Medication List - Last Reconciled 03/26/25 by GUY Da Silva No Known Home Meds Tobacco use date assessed: 03/26/25 Dental Screening Dental Screen Date: 03/26/25 Did you have a dental visit in the last 12 months?: Yes Did you have a dental problem in the last 6 months where you did not have access to dental care?: No Was dental information given to patient?: Patient has dentist HPI annual exam HPI Details Dentist: up to date Eye: 6 years ago Snellen: Right: Left: Corrected vision: Yes, glasses STI screening: Colonoscopy: Pap Smer: About a year and half, has to call and make appt PHQ-9: Flu: no COVID: x3 Tdap: given in office today Diet:regular Exercise: Reports that she does not workout but she is on her feet all the time The patient is a 34-year-old female presenting for an annual physical examination. She has a recent left foot fracture which was discovered incidentally during a consultation with Dr. Ibarra, a jack of all trades, for a planned surgery on a severe right foot bunion. The patient had been experiencing severe left foot pain for about two weeks prior to the diagnosis. The jack of all trades has placed her in a boot for the left foot, deferred the right foot surgery, and recommended she stay out of work for three months, which has caused her some distress. She is scheduled for a follow-up in one month to assess healing. The patient reports a history of being prone to foot fractures, having previously broken both feet just from walking. She attributes this to her job, where she stands for 55 hours a week for the past 12 years. The patient is a smoker and attempted to quit using nicotine patches but developed a severe rash, possibly due to an adhesive allergy. Her last eye exam was approximately six years ago, though she continues to wear glasses with the same prescription purchased online. Her last Pap smear was about a year and a half ago. She has had three COVID-19 vaccinations but does not typically get the flu vaccine. Her last tetanus shot was likely more than ten years ago. Past labs from 2022 showed no anemia and only a slightly elevated liver enzyme, which was not concerning. [facility] Medical History Smoker Obesity (BMI 30-39.9) Surgical History No pertinent past surgical history Family History Other FH: mental illness Social History Housing: House Patient Tobacco Use Status: Former Tobacco user Cigarette Packs Per Day: 0.5 Cigarettes Per Day: 10 Years Smoked: 8 e-Cigarette/Vaping Use: Currently Using Second Hand Smoke Exposure: No service: No Current occupational status: employed Current occupational exposures/hazards: No Cognitive needs: No Hearing needs: No Vision needs: No Questionnaire Thrive Questionnaire Date Thrive assessed: 12/16/24 I am a: Patient What is your living situation today?: I have a steady place to live Within the past 12 months, did the food you bought not last and you didn't have the money to get more?: Sometimes True Within the past 12 months, did you worry whether your food would run out before you got money to buy more?: Sometimes True Do you have trouble paying for medicines?: No Do you have trouble getting transportation to medical appointments?: No Do you have trouble paying your heating and electricity bill?: Yes Do you have trouble taking care of your child, family member or friend?: No Do you have trouble with day-to-day activities such as bathing, preparing meals, shopping, managing finances, etc.?: No Are you currently unemployed and looking for a job?: No Are you interested in more education?: No Please select the resources that you would like help with: None THRIVE Score: 3 CARLITO-7 AMB Questionnaire CARLITO-7 Date CARLITO - 7 assessed: 12/18/24 Source: Developed by Drs. Madi Kenney, Hyacinth Hi, Frank Herrmann and colleagues, with an educational jayy from [employer]. Review of Systems Const Denies fatigue, Denies fever(s) and Denies headache(s) ENT Denies dysphagia, Denies dizziness, Denies otalgia, Denies headache(s), Denies neck pain, Denies odynophagia and Denies sore throat Card Denies chest pain, Denies rapid heart rate, Denies irregular heart rhythm, Denies palpitations and Denies dyspnea Resp Denies chest congestion, Denies cough and Denies dyspnea GI Denies abdominal pain, Denies constipation, Denies dysphagia, Denies heartburn, Denies diarrhea, Denies nausea, Denies odynophagia and Denies vomiting Denies urinary frequency, Denies dysuria and Denies urinary urgency Musc Details: (+) on and off pain over the toes of the right foot Denies back pain, Denies arthralgias, Denies neck pain and Reports other (left and right foot pain) Skin/Breast Denies rash Neuro Denies Abnormal speech present, Denies dizziness and Denies headache(s) Psych Denies anxiety and Denies depression Endo Denies fatigue and Denies palpitations Kristian/Lymph Denies easy bruising Physical exam (Primary Care) Vital Signs: Last Vital Signs Temp 97.1 F 03/26/25 08:24 Pulse 85 03/26/25 08:24 Resp 18 03/26/25 08:24 BP 132/68 03/26/25 08:24 Pulse Ox 98 03/26/25 08:24 Oxygen Delivery Method Room Air 03/26/25 08:24 BMI result Body Mass Index 38.3 Tobacco/Smoking Status: Tobacco use Status Tobacco use date assessed 03/26/25 03/26/25 08:31 Patient Tobacco Use Status Former Tobacco user 03/26/25 08:31 e-Cigarette/Vaping Use Currently Using 03/26/25 08:31 Thrive Assessment: Date of Thrive Assessment Date Thrive assessed 12/16/24 03/26/25 08:31 Const General: healthy appearing, no acute distress, alert and awake Nutritional Appearance: well nourished Orientation/consciousness: oriented to person, oriented to place and oriented to time HENMT Ears: TM's normal bilaterally General nose exam: Normal nasal mucous membranes and turbinates present Eyes Conjunctivae: conjunctivae normal Sclerae: sclerae normal Pupils: Equal, round and reactive pupils present Neck Neck: Yes no lymphadenopathy and Yes no JVD Thyroid: Thyroid normal Carotids: no bruits Resp Effort & Inspection: normal respiratory effort and not tachypneic Auscultation: no crackles, no rales, no rhonchi and no wheezes Cardio Rate: regular rate Rhythm: regular rhythm Heart sounds: no murmurs and normal S1 and S2 GI Palpation (GI): Soft to palpation, nontender, no hepatomegaly and no splenomegaly Auscultation: normal bowel sounds Skin General skin exam: no rashes or lesions noted and dry skin Neuro General: oriented to person, oriented to place and oriented to time Cranial nerves: Yes Equal, round and reactive pupils present Speech: No Abnormal speech present Gait exam (Neuro): Normal gait present Motor exam (neuro): no tremor noted Deep tendon reflexes (DTR's): Right triceps reflex intensity grade: 2+, Left triceps reflex intensity grade: 2+, Rt Biceps (C5, C6): 2+, Left biceps reflex intensity grade: 2+, Right brachioradialis reflex intensity grade: 2+, Left brachioradialis reflex intensity grade: 2+, Right patellar reflex intensity grade: 2+ and Left patellar reflex intensity grade: 2+ Extrem Right upper extremity: full ROM Left upper extremity: full ROM Right lower extremity: full ROM; no edema Left lower extremity: full ROM and foot (boot in place); no edema Psych Mental Status: mental status grossly normal Speech and movement: Normal speech and movement present Affect: normal affect Attitude: cooperative Thought process: Normal thought process present Immunizations Tenivac (PF) 5 Lf unit-2 Lf unit/0.5 mL intramuscular syringe Performing Provider: GUY Da Silva [facility] Administered by: FERNANDO Soler on 03/26/25 08:55 Dose Route Admin Location Dispensed Lot Number Expiration Date [facility] Reproduction Technician 0.5 mL IM Left Deltoid 0.5 mL [id number] 08/25/26 72457-065-78 [employer] Total Dispensed Waste 0.5 mL 0 % VIS Given Date VIS Provided VIS Publication Date 03/26/25 Single Vaccine 20 Eligibility Eligibility Date Funding Source Not [facility] Eligible 03/26/25 Private Coding Level of Care Code Est Pt Prev Care 18-39y(52268) Diagnoses Annual physical exam Z00.00 Obesity (BMI 30-39.9) E66.9 Left foot pain M79.672 Smoker F17.200 Bunion, right foot M21.611 Time Spent (min) 34 Assessment & Plan Assessment & Plan (1) Annual physical exam: Code(s): Z00.00 - Encounter for general adult medical examination without abnormal findings Category: Medical Plan: Preventative guidelines reviewed with the patient. TB vaccine given in office today. Patient last Pap smear a year and a half ago, recently transferred her care to [facility] and needs to call to make an appointment. She was encouraged to get current eye exam. (2) Obesity (BMI 30-39.9): Code(s): E66.9 - Obesity, unspecified Category: Medical Plan: Encouraged to exercise for at least 30 minutes a day/5 days a week Healthy eating discussed. Encouraged to eat fruits/vegetables, protein- fish/baked chicken, and to avoid salty/fried foods, sweets, caffeine and carbohydrates. Encouraged to increase water intake 6-8 glasses a day (3) Left foot pain: Code(s): M79.672 - Pain in left foot Category: Medical Plan: The patient will continue to be managed by her jack of all trades, Dr. Ibarra, for her left foot fracture. She will wear the prescribed boot and follow up with the specialist in one month to assess healing. Advised to discuss paperwork for work leave directly with the specialist. This office will provide support with paperwork if needed, provided the specialist's notes are sent over. (4) Smoker: Code(s): F17.200 - Nicotine dependence, unspecified, uncomplicated Category: Social Hx Plan: Since the patient experienced a severe rash with nicotine patches, a trial of Chantix (varenicline) is offered. She was counseled regarding the potential side effect of new or worsening psychiatric symptoms, including suicidal ideation, and was instructed to stop the medication immediately and contact the office if such thoughts occur. (5) Bunion, right foot: Code(s): M21.611 - Bunion of right foot Category: Medical Plan: Surgical intervention for the right foot bunion is currently on hold until the left foot fracture has healed. Orders: Orders Complete Blood Count Auto Diff Today E66.9 - Obesity, unspecified, F17.200 - Nicotine dependence, unspecified, uncomplicated, M79.672 - Pain in left foot, Z00.00 - Encounter for general adult medical examination without abnormal findings Lipid Panel Today E66.9 - Obesity, unspecified, F17.200 - Nicotine dependence, unspecified, uncomplicated, M79.672 - Pain in left foot, Z00.00 - Encounter for general adult medical examination without abnormal findings UA CC w/rflx Micro + Cult Today E66.9 - Obesity, unspecified, F17.200 - Nicotine dependence, unspecified, uncomplicated, M79.672 - Pain in left foot, Z00.00 - Encounter for general adult medical examination without abnormal findings Vitamin D 25-OH Total Today E66.9 - Obesity, unspecified, F17.200 - Nicotine dependence, unspecified, uncomplicated, M79.672 - Pain in left foot, Z00.00 - Encounter for general adult medical examination without abnormal findings Td Immunization Today Z23 - Encounter for immunization Comprehensive [place]. Panel Fast Today E66.9 - Obesity, unspecified, F17.200 - Nicotine dependence, unspecified, uncomplicated, M79.672 - Pain in left foot, Z00.00 - Encounter for general adult medical examination without abnormal findings TSH reflex Free T4 Today E66.9 - Obesity, unspecified, F17.200 - Nicotine dependence, unspecified, uncomplicated, M79.672 - Pain in left foot, Z00.00 - Encounter for general adult medical examination without abnormal findings Medications: New varenicline tartrate (Chantix Starting Month Box) PO PER PKG DIR 53 ea 0RF dustin otine dependance
[2025-03-26 08:24] VITALS: BP 132/68; PULSE 85; RESP 18; TEMP 36.2; O2SAT 98; BMI 38.3
== END 2025-03-26 09:02 | disposition home or self-care (01) ==
LOC: HO.HMCH 08:20
PROVIDERS: PCP Internal Medicine
DX: Z00.00 Encounter for general adult medical examination without abnormal findings (principal); E66.9 Obesity, unspecified; Z68.38 Body mass index [BMI] 38.0-38.9, adult; M79.672 Pain in left foot; F17.200 Nicotine dependence, unspecified, uncomplicated; M21.611 Bunion of right foot; Z23 Encounter for immunization

== ENCOUNTER → 2025-03-26 08:19 | Outpatient (BNVA) | payer OTHER, SELFPAY | PROVIDERS: PCP Internal Medicine | DX: Z00.00 Encounter for general adult medical examination without abnormal findings (principal); M21.611 Bunion of right foot; F17.210 Nicotine dependence, cigarettes, uncomplicated; E66.9 Obesity, unspecified; S92.902A Unspecified fracture of left foot, initial encounter for closed fracture; X58.XXXA Exposure to other specified factors, initial encounter; Y93.9 Activity, unspecified; Y92.9 Unspecified place or not applicable; Y99.9 Unspecified external cause status; Z23 Encounter for immunization; Z68.38 Body mass index [BMI] 38.0-38.9, adult | CPT/HCPCS: 90471; 90714; 99395 ==

== ENCOUNTER 2025-04-10 18:10 | Emergency (ER) | payer OTHER, SELFPAY ==
--- NOTE | ~2025-04-10 | XR_ITS ---
CLINICAL HISTORY: injury, pain 4 view left knee Comparison: None provided Findings: Bones intact. No dislocations. No significant arthritic change or erosions. No joint effusion. No radiopaque foreign body. IMPRESSION: No acute osseous abnormality. This document has been electronically signed by: Sofy Powell MD on 04/10/2025 19:02:23
[2025-04-10 18:17] VITALS: BP 146/87; PULSE 87; RESP 18; TEMP 37.2; O2SAT 98; BMI 36.3
--- NOTE | 2025-04-10 18:18 | ED.LOWEXIN ---
HPI - Extremity Injury (Lower) General Chief Complaint: Extremity Injury, Lower Stated Complaint: lt knee pain Time Seen by Provider: 04/10/25 20:32 Source: patient Mode of arrival: ambulatory Limitations: no limitations History of Present Illness ED Provider: Lori Johnson APRN HPI Narrative: 34 yo female with a current left foot fracture here with left knee pain after a twisting injury. No associated weakness, numbness, tingling of the extremity. Worsened with weight bearing. Related Data Previous Rx's ?Medication ?Instructions ?Recorded varenicline tartrate 0.5 mg (11)-1 See Rx Instructions PO PER PKG DIR 03/26/25 mg (42) tablets in a dose pack nicotine dependance #53 ea (Chantix Starting Month Box) Allergies Allergy/AdvReac Type Severity Reaction Status Date / Time ibuprofen (From Motrin) Allergy Intermediate HIVES Verified 04/10/25 18:19 acetaminophen (From Vicodin) Allergy Itching Verified 04/10/25 18:19 hydrocodone AdvReac Intermediate itching / Verified 04/10/25 18:19 rash Review of Systems Review of Systems: Yes all other systems are reviewed and are negative Constitutional: Constitutional: Reports no additional constitutional complaints, Denies body ache(s), Denies chills, Denies fever(s), Denies headache(s) and Denies weakness Eyes: Eyes: Reports no additional eye complaints and Denies change in vision ENT: Reports system reviewed and no additional complaints, except as documented, Denies dizziness, Denies headache(s), Denies nasal congestion, Denies nasal discharge and Denies neck pain Cardiovascular: Cardiovascular: Reports no additional cardiovascular complaints, Denies chest pain, Denies leg edema and Denies dyspnea Respiratory: Respiratory: Reports no additional respiratory complaints, Denies cough and Denies dyspnea Gastrointestinal: Gastrointestinal: Reports no additional gastrointestinal complaints, Denies abdominal pain, Denies diarrhea, Denies nausea and Denies vomiting Genitourinary: Genitourinary: Reports no additional female genitourinary complaints and Denies urinary incontinence Musculoskeletal: Musculoskeletal: Reports no additional musculoskeletal complaints, Denies back pain, Reports arthralgias, Denies joint swelling, Denies neck pain, Denies numbness and Denies tingling Integumentary/Breasts: Skin/Breast: Reports system reviewed and no additional complaints, except as docu and Denies rash Neurologic: Reports system reviewed and no additional complaints, except as documented, Denies Abnormal speech present, Denies dizziness, Denies headache(s), Denies numbness, Denies tingling and Denies weakness PMFSH Past Medical History Attestation statement: The following information was validated with the patient. Source: old records reviewed and nursing notes reviewed Medical History Smoker Obesity (BMI 30-39.9) Surgical History No pertinent past surgical history Family History Family History Other FH: mental illness Social History Social History Housing: House Patient Tobacco Use Status: Former Tobacco user Cigarette Packs Per Day: 0.5 Cigarettes Per Day: 10 Years Smoked: 8 e-Cigarette/Vaping Use: Currently Using Second Hand Smoke Exposure: No Advance Directives: No Advance Directives Information Provided: No service: No Current occupational status: employed Current occupational exposures/hazards: No Cognitive needs: No Hearing needs: No Vision needs: No Physical Exam Vital Signs: Vital Signs: Last Vital Signs Temp 98.9 F 04/10/25 18:17 Pulse 87 04/10/25 18:17 Resp 18 04/10/25 18:17 BP 146/87 H 04/10/25 18:17 Pulse Ox 98 04/10/25 18:17 O2 Del Method Room Air 04/10/25 18:17 BMI result Body Mass Index 36.3 Const: General: cooperative, healthy appearing, comfortable and no acute distress Orientation/consciousness: patient oriented x3 Limitations: no limitations HEENT: Head: Yes normal to inspection Ears: hearing grossly normal bilaterally General nose exam: Normal external nose present Face and sinus: Yes normal facial exam Mouth: Normal oral and palatal mucosa present Throat: Yes posterior oropharynx normal Eyes: General: appearance normal, both eyes and all related structures Pupils: Equal, round and reactive pupils present Neck: Neck: Yes normal visual inspection Chest: Chest palpation & inspection: normal inspection of the chest Resp: Effort & Inspection: normal respiratory effort Auscultation: clear to auscultation bilaterally Cardio: Rate: regular rate Rhythm: regular rhythm Peripheral pulses: Peripheral pulses 2+ throughout GI: Inspection: Yes normal to inspection Palpation (GI): Soft to palpation and nontender Auscultation: normal bowel sounds Back/Spine/Pelvis: Thoracic/Lumbar Spine: thoracic and lumbar spine normal to inspection Skin: General skin exam: no rashes or lesions noted Neuro: General: patient oriented x3, no focal motor deficits and normal sensation to monofilament Cranial nerves: Yes Equal, round and reactive pupils present Cognition (Neuro): normal cognition Speech: No Abnormal speech present Gait exam (Neuro): Normal gait present Motor exam (neuro): 5/5 motor strength present throughout Extrem: Other: Pain on palpation to the anterior left knee worsened with flexion. Full active and passive ROM. 2+ DP/PT pulses. Normal sensation. No ligamental laxity. General: Yes normal to inspection Course Course Course Narrative: Lori Johnson DELIVERY TRUCK DRIVER HEAVY 04/10 1818 This is a rapid medical exam. Deferred additional HPI, ROS, PE to primary provider. 34 yo female here with left knee pain after twisting injury. Will check x-ray VSS Medical Decision Making Medical Decision Making MDM Narrative: 34 yo female with a current left foot fracture here with left knee pain after a twisting injury. No associated weakness, numbness, tingling of the extremity. Worsened with weight bearing. Pain on palpation to the anterior left knee worsened with flexion. Full active and passive ROM. 2+ DP/PT pulses. Normal sensation. No ligamental laxity. Will obtain x-rays Likely sprain Differential Diagnosis Differential Diagnoses: The differential diagnosis associated with the presentation includes sprain, strain Low suspician for fracture, dislocation, vascular injury Admission/Observation Consideration of admission/observation: Escalation of care including admission/observation considered Low suspician for fracture, dislocation, vascular injury requiring advanced imaging, urgent consultation Independent Interpretation I performed an independent interpretation of an: Plain X-Ray Interpretation: I independently reviewed the x-ray and agree with the rad report. Radiology Impression Discussion of test interpretation with radiology: I have reviewed the radiologist's reading. Radiologist Impression: [address] [address] XRay Report Signed Patient: Herminia Cohen MR#: [id number] : 1990 Acct:[id number] Age/Sex: 34 / F ADM Date: 04/10/25 Loc: HO.ED Attending Dr: Ordering Physician: Lori Johnson NP Date of Service: 04/10/25 Procedure(s): XR knee LT 4V Accession Number(s): [id number] cc: Lorenzo Aguiar MD; Lori Johnson NP~ Reason for Exam: injury, pain CLINICAL HISTORY: injury, pain 4 view left knee Comparison: None provided Findings: Bones intact. No dislocations. No significant arthritic change or erosions. No joint effusion. No radiopaque foreign body. IMPRESSION: No acute osseous abnormality. This document has been electronically signed by: Sofy Powell MD on 04/10/2025 19:02:23 Independent Historian Clinical information obtained from an independent historian. History obtained from or confirmed by: Spouse Tests considered The following testing was considered but not selected: Low suspician for fracture, dislocation, vascular injury requiring advanced imaging Procedures Orthopedic Splinting/Casting Injury #1: Side: left Lower Extremity Injury Location: knee Lower Extremity Immobilizer: Smith wrap Other Orthopedic Equipment: crutches Discharge Plan Discharge Clinical Impression: Left knee sprain Patient Disposition: Home, Self-Care Instructions: Knee Sprain (ED), Crutch Instructions (ED), How to Use an Elastic Bandage (ED) Additional Instructions: Use the smith wrap and crutches to limit weight bearing Ice to the area Elevation to the leg Tylenol for pain as needed follow-up with orthopedics as needed Prescriptions: No Action varenicline tartrate [Chantix Starting Month Box] 0.5 mg (11)- 1 mg (42) tablets,dose pack See Rx Instructions PO PER PKG DIR Qty: 53 0RF Rx Instructions: PO PER PKG DIR Referrals: [facility] Orthopedic Surgeons [Provider Group] Lorenzo Aguiar MD [Primary Care Provider, Internal Medicine] Stand Alone Forms: Work/School Release Print Language: Mohawk
--- OUTSIDE RECORDS SUMMARY | 2025-04-10 20:53 | XMS_ITS | Clinical Summary ---
Author Organization [facility] Address [address] [place] [address] Phone Care Team Providers Care Cotton Dispatcher Name Role Phone Lorenzo Aguiar MD Primary Care Provider Allergies No known active allergies Encounters Date Type Department Care Team Description 03/30/2025 Telephone Orthopedic Surgery [facility] [address] [phone] Adiel Cosby DPM 03/24/2025 2:15 PM EDT Office Visit Orthopedic Surgery [facility] [address] [phone] Adiel Cosby DPM Acquired hallux valgus of left foot (Primary Dx); Bilateral foot pain; Acquired hallux valgus of right foot; Nondisplaced fracture of third metatarsal bone, left foot, initial encounter for closed fracture 03/13/2025 8:59 PM EDT - 03/13/2025 9:06 PM EDT Emergency [facility] Emergency [address] [place] [address] Left foot pain (Primary Dx) [...] Care Team (Late st Contact Info) Description 04/27/2025 1:15 PM EST Office Visit Orthopedic Surgery - [place] 250 175 [facility] [address] [place] [address] Adiel Cosby, DPM [address] [phone] Health Maintenance Due Date Last Done Comments [...] on patient's age to complete this topic Procedures Procedure Name Priority Date/Time Associated Diagnosis Comments XR FOOT 3+ VIEWS BILAT Routine 03/24/2025 3:05 PM EDT Bilateral foot pain from Last 3 Months Results * XR Foot 3+ Views bilat (03/24/2025 3:05 PM EDT) Anatomical Region Laterality Modality Lower Extremities, Foot Bilateral Computed Radiography Narrative 03/24/2025 6:12 PM EDT Left foot 3 views Metatarsus adductus foot type Severe bunion deformity Radiolucency of the proximal to anatomic neck of the third metatarsal consistent with stress fracture with angulation Right foot 3 views Metatarsus adductus foot type Severe bunion deformity Adiel Cosby DPSparkle IMG XR PROCEDURES Final R esult from Last [address] [place] [address] [place] [address] PLAN Care Teams Cotton Dispatcher Relationship Specialty Start Date End Date Lorenzo Aguiar MD [address] [place] [address] Javid [address] JESICA Rodríguez PCP - General Internal Medicine 12/21/24
--- OUTSIDE RECORDS SUMMARY | 2025-04-10 20:53 | XMS_ITS | Encounter Summary ---
Author Organization [facility] Address [address] [place] [phone] Care Team Providers Care Trimmer Operator Name Role Phone Lorenzo Aguiar MD Primary Care Provider Encounter Details Date Type Department Care Team (Late st Contact Info) Description 03/30/2025 Telephone Orthopedic Surgery [facility] [address] [phone] Adiel Cosby, DPM [address] [phone] Social History Tobacco Use Types Packs/Day Years Used Date Smoking Tobacco: Never Assessed Comments No Sex and Gender Information Value Date Recorded Sex Assigned at Not on file Legal Sex Female 4:19 AM EST Gender Identity Not on file Sexual Orientation Not on file documented as of this encounter Progress Notes * Azalia Forrest - 04/09/2025 5:02 PM EST Letter complete and sent to patient in [facility] * Jannet Reynolds - 03/30/2025 1:32 PM EST Herminia is calling requesting a out of work note, Herminia states one was offered but she declined thinking she could work through the pain but realized that she is unable too documented in this encounter Plan of Treatment Upcoming Encounters Date Type Department Care Team (Late st Contact Info) Description 04/27/2025 1:15 PM EST Office Visit Orthopedic Surgery [facility] [address] [place] [address] Adiel Cosby, DPM 175 [facility] [address] [place] [address] documented as of this encounter Visit Diagnoses Not on filedocumented in this encounter Care Teams Trimmer Operator Relationship Specialty Start Date End Date Lorenzo Aguiar MD [address] [place] [address] [address] [place], [place] PCP - General Internal Medicine 12/21/24 documented as of this encounter
[2025-04-10 21:42] VITALS: BP 146/87; PULSE 87; RESP 18; TEMP 37.2; O2SAT 98
== END 2025-04-10 21:43 | disposition home or self-care (01) ==
PROVIDERS: Emergency Provider Student in an Organized Health Care Education/Training Program; PCP Internal Medicine
DX: M25.562 Pain in left knee (principal); S83.92XA Sprain of unspecified site of left knee, initial encounter; X58.XXXA Exposure to other specified factors, initial encounter; Y93.9 Activity, unspecified; Y92.9 Unspecified place or not applicable; Z87.891 Personal history of nicotine dependence
CPT/HCPCS: 73564; 99282; 99283

== ENCOUNTER 2025-04-12 15:36 | Outpatient (AMB) | payer OTHER, SELFPAY ==
[2025-04-12 15:39] VITALS: BP 120/70; PULSE 90; RESP 18; TEMP 36.2; O2SAT 96; BMI 38.1
--- NOTE | 2025-04-12 15:39 | MHC.PC.OV ---
Vital Signs 04/12/25 15:39 Height 5 ft 3 in Weight 215 lb BMI 38.1 BP 120/70 Blood Pressure Location Lt brachial Position Sitting Respiration 18 Pulse 90 Pulse Source Pulse Oximeter Temp 97.1 F Temp Source Temporal Artery Scan Pulse Oximetry (%) 96 Oxygen Delivery Method Room Air Intake Visit Reasons: [facility] ED f/u (L) knee strain Lead Technical Architect Required: No Accompanied by: Self / Same As Patient Allergies ibuprofen (From Motrin) Allergy (Intermediate, Verified 04/12/25 18:24) HIVES acetaminophen (From Vicodin) Allergy (Verified 04/12/25 18:24) Itching hydrocodone Adverse Reaction (Intermediate, Verified 04/12/25 18:24) itching / rash Medication List - Last Reconciled 04/12/25 by GUY Da Silva varenicline tartrate (Chantix Starting Month Box) PO PER PKG DIR Tobacco use date assessed: 04/12/25 Dental Screening Dental Screen Date: 04/12/25 Did you have a dental visit in the last 12 months?: No Did you have a dental problem in the last 6 months where you did not have access to dental care?: No Was dental information given to patient?: Patient has dentist HPI [facility] ED f/u (L) knee strain HPI Details The patient is a 34-year-old female presenting for follow-up of a left knee injury. She reports hearing a pop in her knee followed by a shaking sensation, which caused her to fall. Following the injury, she went to the ER where X-rays were performed and showed no fractures. She currently has her knee wrapped and is unable to bend it or bear weight on it without pain. She reports being able to walk a little bit and can straighten her leg, though it causes some pain. However, the pain is severe when the knee is bend. Tenderness and edema to lateral aspect of knee. No laxity of the knee. No weakness or discoloration noted. Smith bandage in place, reports using knee brace for long distance. . [facility] Medical History Smoker Obesity (BMI 30-39.9) Surgical History No pertinent past surgical history Family History Other FH: mental illness Social History Housing: House Patient Tobacco Use Status: Former Tobacco user Cigarette Packs Per Day: 0.5 Cigarettes Per Day: 10 Years Smoked: 8 Packs Per Year: 4 Packs per year/per ci.00 e-Cigarette/Vaping Use: Currently Using Second Hand Smoke Exposure: No service: No Current occupational status: employed Current occupational exposures/hazards: No Cognitive needs: No Hearing needs: No Vision needs: No Questionnaire Thrive Questionnaire Date Thrive assessed: 12/16/24 I am a: Patient What is your living situation today?: I have a steady place to live Within the past 12 months, did the food you bought not last and you didn't have the money to get more?: Sometimes True Within the past 12 months, did you worry whether your food would run out before you got money to buy more?: Sometimes True Do you have trouble paying for medicines?: No Do you have trouble getting transportation to medical appointments?: No Do you have trouble paying your heating and electricity bill?: Yes Do you have trouble taking care of your child, family member or friend?: No Do you have trouble with day-to-day activities such as bathing, preparing meals, shopping, managing finances, etc.?: No Are you currently unemployed and looking for a job?: No Are you interested in more education?: No Please select the resources that you would like help with: None Currently or been in a relationship where the following occur: No concerns reported THRIVE Score: 3 CARLITO-7 AMB Questionnaire CARLITO-7 Date CARLITO - 7 assessed: 12/18/24 Source: Developed by Drs. Madi Kenney, Hyacinth Hi, Frank Herrmann and colleagues, with an educational jayy from [employer]. Review of Systems Narrative Review of Systems - Musculoskeletal: Reports a popping sound and shaking sensation in her left knee prior to a fall. - Musculoskeletal: Reports left knee pain, inability to bend the knee, and inability to bear weight. Const Denies body aches, Denies chills, Denies fever(s), Denies headache(s) and Denies poor appetite Eyes Reports no additional complaints ENT Denies dysphagia, Denies dizziness, Denies headache(s) and Denies odynophagia Card Denies chest pain, Denies syncope, Denies edema, Denies irregular heart rhythm, Denies lightheadedness and Denies dyspnea Resp Denies cough and Denies dyspnea GI Denies abdominal pain, Denies constipation, Denies dysphagia, Denies diarrhea, Denies nausea, Denies odynophagia and Denies vomiting Reports no additional complaints Musc Reports abnormal gait, Reports arthralgias (Left knee ) and Reports joint swelling (Left knee) Skin/Breast Reports system reviewed and no additional complaints, except as documented Neuro Reports abnormal gait, Denies dizziness, Denies syncope and Denies headache(s) Psych Reports no additional complaints Physical exam (Primary Care) Vital Signs: Last Vital Signs Temp 97.1 F 04/12/25 15:39 Pulse 90 04/12/25 15:39 Resp 18 04/12/25 15:39 BP 120/70 04/12/25 15:39 Pulse Ox 96 04/12/25 15:39 Oxygen Delivery Method Room Air 04/12/25 15:39 BMI result Body Mass Index 38.1 Tobacco/Smoking Status: Tobacco use Status Tobacco use date assessed 04/12/25 04/12/25 15:48 Patient Tobacco Use Status Former Tobacco user 04/12/25 15:48 e-Cigarette/Vaping Use Currently Using 04/12/25 15:48 Thrive Assessment: Date of Thrive Assessment Date Thrive assessed 12/16/24 04/12/25 15:48 Currently or been in a relationship where the following occur: No concerns reported Narrative Physical Exam - Left Knee: A hard, protruding area was noted on palpation. Const General: cooperative, healthy appearing, comfortable and no acute distress Orientation/consciousness: patient oriented x3 HENMT Head: Yes normocephalic Ears: hearing grossly normal bilaterally General nose exam: Normal external nose present Eyes General: appearance normal, both eyes and all related structures Conjunctivae: conjunctivae normal Neck Neck: Yes full ROM and Yes no lymphadenopathy Resp Effort & Inspection: normal respiratory effort Auscultation: clear to auscultation bilaterally, no crackles, no rales, no rhonchi and no wheezes Cardio Rate: regular rate Rhythm: regular rhythm Skin General skin exam: no rashes or lesions noted Neuro General: patient oriented x3 Gait exam (Neuro): Normal gait present Extrem General: Yes normal to inspection, Yes full ROM and No edema Left lower extremity: knee Details: tenderness Location: of the lateral joint line and swelling Location: of the patella Psych Affect: normal affect Attitude: cooperative Insight: Good insight present (Psych) Judgement: Good judgement present (Psych) Coding Level of Care Code Est Pt Level 3 (77838) Diagnoses Injury of left knee, subsequent encounter S89.92XD Encounter type: subsequent encounter Acute pain of left knee M25.562 Chronicity: acute Time Spent (min) 26 Assessment & Plan Assessment & Plan (1) Left knee injury: Code(s): S89.92XA - Unspecified injury of left lower leg, initial encounter Category: Medical Qualifiers: Encounter type: subsequent encounter Qualified Code(s): S89.92XD - Unspecified injury of left lower leg, subsequent encounter (2) Left knee pain: Code(s): M25.562 - Pain in left knee Category: Medical Qualifiers: Chronicity: acute Qualified Code(s): M25.562 - Pain in left knee Plan Plan Patient was informed and verbally consented to the use of an ambient scribe for clinic note documentation during this visit. 1. Left Knee Injury The patient presents for an emergency department follow-up for a left knee injury. Despite negative X-rays for a fracture, her inability to bend the knee or bear weight without significant amount of pain warrants further investigation for a significant soft tissue injury. An MRI of the left knee will be ordered to further evaluate the condition. Orders: Orders MR knee LT wo con Today M25.562 - Pain in left knee, S89.92XD - Unspecified injury of left lower leg, subsequent encounter
--- OUTSIDE RECORDS SUMMARY | 2025-04-13 06:07 | XMS_ITS | Clinical Summary ---
Author Organization [facility] Address [address] [place] [address] Phone Care Team Providers Care Java Lead Developer Name Role Phone Lorenzo Aguiar MD Primary Care Provider Allergies No known active allergies Encounters Date Type Department Care Team Description 03/30/[address] [facility] [address] [phone] Adiel Cosby DPM 03/24/2025 2:15 PM EDT Office Visit Orthopedic Surgery [facility] [address] [phone] Adiel Cosby DPM Acquired hallux valgus of left foot (Primary Dx); Bilateral foot pain; Acquired hallux valgus of right foot; Nondisplaced fracture of third metatarsal bone, left foot, initial encounter for closed fracture 03/13/2025 8:59 PM EDT - 03/13/2025 9:06 PM EDT Emergency [facility] Emergency [address] [place] [address] Left foot pain (Primary Dx) [...] PM EST Office Visit Orthopedic Surgery - [place] 250 175 [facility] [address] [place] [address] Adiel Cosby, DPM [address] [phone] Health Maintenance Due Date Last [...] R esult from Last [address] [place] [address] [address] [place] [address] Care Teams Java Lead Developer Relationship Specialty Start Date End Date Lorenzo Aguiar MD [address] [place] [address] Javid [address] JESICA Rodríguez PCP - General Internal Medicine 12/21/24
--- OUTSIDE RECORDS SUMMARY | 2025-04-13 06:07 | XMS_ITS | Encounter Summary ---
Author Organization [facility] Address [address] [place] [address] Care Team Providers Care Investment Sales Assistant Name Role Phone Lorenzo Aguiar MD Primary Care Provider Encounter Details Date Type Department Care Team (Late st Contact Info) Description 03/30/2025 Telephone Orthopedic Surgery [facility] [address] [phone] Adiel Cosby, DPM [address] [phone] Social History Tobacco Use Types [...] Letter complete and sent to patient in [facility] * Jannet Reynolds - 03/30/2025 1:32 PM [...] 1:15 PM EST Office Visit Orthopedic Surgery [facility] [address] [place] [phone] Adiel Cosby, DPM 175 [facility] [address] [place] [address] documented as of this encounter Visit Diagnoses Not on filedocumented in this encounter Care Teams Investment Sales Assistant Relationship Specialty Start Date End Date Lorenzo Aguiar MD [address] [place] [address] Dr [address] [place], [place] PCP - General Internal Medicine 12/21/24 documented as of this encounter
== END 2025-04-12 16:11 | disposition home or self-care (01) ==
LOC: HO.HMCH 15:37
PROVIDERS: PCP Internal Medicine
DX: S89.92XD Unspecified injury of left lower leg, subsequent encounter (principal); M25.562 Pain in left knee

== ENCOUNTER → 2025-04-12 15:36 | Outpatient (BNVA) | payer OTHER, SELFPAY | PROVIDERS: PCP Internal Medicine | DX: M25.562 Pain in left knee (principal); S89.92XD Unspecified injury of left lower leg, subsequent encounter; W19.XXXA Unspecified fall, initial encounter; Y93.9 Activity, unspecified; Y92.9 Unspecified place or not applicable; Y99.9 Unspecified external cause status | CPT/HCPCS: 99212 ==

== ENCOUNTER 2025-04-14 12:40 | Outpatient (AMB) | payer OTHER, SELFPAY ==
--- NOTE | 2025-04-14 12:54 | A.OFFVIS_ITS ---
Vital Signs 04/14/25 12:55 Height 5 ft 3 in Weight 210 lb BMI 37.2 Intake Visit Reasons: broken left foot Intake Note: Herminia is a 34 year old female who presents today as a new patient for an evaluation of her left broken foot. Patient reports she is unsure how the injury occurred. She was seen at the walk in clinic where she was provided with a cam boot. She has not taken any OTC pain medication at this time. Allergies ibuprofen (From Motrin) Allergy (Intermediate, Verified 04/12/25 18:24) HIVES acetaminophen (From Vicodin) Allergy (Verified 04/12/25 18:24) Itching hydrocodone Adverse Reaction (Intermediate, Verified 04/12/25 18:24) itching / rash HPI HPI broken left foot: Details: 34-year-old female no pertinent past medical history presents for left foot stress fracture. The patient states that in the middle of February, she started having pain to her left foot. She describes it as a sharp pain to the foot. She denies any history of injuries, denies change in shoe wear, lifestyle, or medications including (steroids). The patient states she works over 55 hours a week and on her feet at all times. She was seen at the walk-in clinic in [place] when 03/16/2025 and was diagnosed with a stress fracture. She was placed in a cam boot which she has been wearing daily until now. She notes that most of her pain symptoms have resolved. [facility] Medical History Smoker Obesity (BMI 30-39.9) Surgical History No pertinent past surgical history Family History Other FH: mental illness Social History Housing: House Patient Tobacco Use Status: Former Tobacco user Cigarette Packs Per Day: 0.5 Cigarettes Per Day: 10 Years Smoked: 8 e-Cigarette/Vaping Use: Currently Using Second Hand Smoke Exposure: No service: No Current occupational status: employed Current occupational exposures/hazards: No Cognitive needs: No Hearing needs: No Vision needs: No Review of Systems Const All systems reviewed & are unremarkable except as noted in HPI and below Physical Exam Vital Signs: BMI result Body Mass Index 37.2 Extrem Other: *Bilateral Lower Extremity Focused Exam Vascular: DP/PT 2/4, CFT less than 3 seconds all digits, temperature gradient warm to cool. No pedal edema. Derm: No erythema ecchymosis or clinical signs of infection. Neuro: Protective sensation grossly intact to bilateral lower extremities. No Tinel sign. MSK: Mild tenderness on palpation over the dorsal aspect of the 3rd metatarsal shaft. Moderate tenderness on maximum plantar flexion of the 3rd digit. No pa in to the 2nd and 4th metatarsal. No pain to the Lisfranc ligament complex. Results Reviewed Results Reviewed: X-ray left foot 3 views IMPRESSION: there is a linear lucency through the medial cortex of the distal 3rd metatarsal which has the appearance of a vascular groove. However, there is possible subtle associated periosteal reaction, which could represent a stress response. Correlation with the patient's area of pain is recommended. Assessment & Plan Assessment & Plan (1) Stress fracture, left foot, sequela: Code(s): M84.375S - Stress fracture, left foot, sequela Category: Medical Plan: * Reviewed left foot x-rays with the patient * Referred for new left foot x-ray. The patient states she will receive her x- rays on Saturday. * May transition from cam boot to carbon fiber insole depending on results of the x-ray. * Continue weight-bearing in Cam boot * Follow up in 1 month. Orders: Orders XR foot LT min 3V Today M84.375S - Stress fracture, left foot, sequela Coding Level of Care Code New Pt Level 4 (41945) Diagnoses Stress fracture, left foot, sequela M84.375S Time Spent (min) 35
[2025-04-14 12:55] VITALS: BMI 37.2
--- OUTSIDE RECORDS SUMMARY | 2025-04-14 23:59 | XMS_ITS | Clinical Summary ---
Author Organization [facility] Address [address] [place] [address] Phone Care Team Providers Care Garnett Machine Operator Name Role Phone Lorenzo Aguiar MD Primary Care Provider [phone] Allergies No known active allergies Encounters Date Type Department Care Team Description 03/30/2025 Telephone Orthopedic Surgery [facility] [address] [phone] Adiel Cosby DPM 03/24/2025 2:15 PM EDT Office Visit Orthopedic Surgery [facility] [address] [phone] Adiel Cosby DPM Acquired hallux valgus of left foot (Primary Dx); Bilateral foot pain; Acquired hallux valgus of right foot; Nondisplaced fracture of third metatarsal bone, left foot, initial encounter for closed fracture 03/13/2025 8:59 PM EDT - 03/13/2025 9:06 PM EDT Emergency [facility] Emergency [address] [place] [address] Left foot pain (Primary Dx) [...] PM EST Office Visit Orthopedic Surgery - [place] 250 175 [facility] [address] [place] [address] Adiel Cosby, DPM [address] [phone] Health Maintenance Due Date Last [...] R esult from Last [address] [place] [address] [place] [address] PLAN Care Teams Garnett Machine Operator Relationship Specialty Start Date End Date Lorenzo Aguiar MD [address] [place] [address] [address] JESICA Rodríguez PCP - General Internal Medicine 12/21/24
--- OUTSIDE RECORDS SUMMARY | 2025-04-14 23:59 | XMS_ITS | Encounter Summary ---
Author Organization [facility] Address [id number] [place] [id number] Care Team Providers Care Egg Trayer Name Role Phone Lorenzo Aguiar MD Primary Care Provider [phone] Encounter Details Date Type Department Care Team (Late st Contact Info) Description 03/30/2025 Telephone Orthopedic Surgery [facility] [address] [phone] Adiel Cosby, DPM [address] [phone] Social History Tobacco Use Types [...] Letter complete and sent to patient in [facility] * Jannet Reynolds - 03/30/2025 1:32 PM [...] 1:15 PM EST Office Visit Orthopedic Surgery [facility] [address] [place] [phone] Adiel Cosby, DPM [address] [facility] [address] [place] [address] documented as of this encounter Visit Diagnoses Not on filedocumented in this encounter Care Teams Egg Trayer Relationship Specialty Start Date End Date Lorenzo Aguiar MD [address] [place] [address] [address] [place], [place] PCP - General Internal Medicine 12/21/24 documented as of this encounter
== END 2025-04-14 13:13 | disposition home or self-care (01) ==
LOC: HO.HPODS 12:40
PROVIDERS: PCP Internal Medicine; Visit Provider Student in an Organized Health Care Education/Training Program
DX: M84.375S Stress fracture, left foot, sequela (principal)
CPT/HCPCS: 99204

== ENCOUNTER → 2025-04-14 12:40 | Outpatient (BNVA) | payer OTHER, SELFPAY | PROVIDERS: PCP Internal Medicine; Visit Provider Student in an Organized Health Care Education/Training Program | DX: M84.375S Stress fracture, left foot, sequela (principal) | CPT/HCPCS: 99202 ==